=== PATIENT | male | born 1975 | race Caucasian/White ===

== ENCOUNTER → 2016-08-13 | Outpatient (CLI) | payer OTHER ==
[~2016-08-13] MED LIST: CITA20TA4 PO; INSDGI SC; KETO10TA PO; LISI-461 PO; LPT/40 PO; NVLGI SC; OXYC-57 PO; PANT1TAB48 PO; RANI300T2 PO; SIMV20TA2 PO; SULF-183 PO; TERB250T51 PO
[2016-08-13 16:55] LABS: BASO ABS # 0.07 K/uL (0-0.2); COMPLETE YES; EOS % 3.9 %; HEMATOCRIT 45.3 % (42-52); IG% 0.1 %; LYMPH % 19.2 %; LYMPH ABS # 1.39 K/uL (1.2-3.4); MEAN CELL VOLUME 85.3 fL (80-100); MEAN CORPUSCULAR HEMOGLOBIN 29.4 pg (25-34); MEAN CORPUSCULAR HGB CONC 34.4 g/dl (32-36); MEAN PLATELET VOLUME 10.9 fL (7.4-10.4); MONO % 6.1 %; NEUT % 69.7 %; PLATELET COUNT 251 K/uL (130-400); RED BLOOD COUNT 5.31 M/uL (4.7-6.1); WHITE BLOOD COUNT 7.24 K/uL (4.8-10.8)
[2016-08-13 17:01] LABS: URINE APPEARANCE CLEAR (CLEAR); URINE BILIRUBIN NEG (NEG); URINE COLOR YELLOW; URINE EPITHELIAL CELL AUTO 0-5 /lpf (0-5); URINE NITRITE NEG (NEG); URINE PH 8.5 (4.5-7.5); URINE SPECIFIC GRAVITY 1.005 (1.000-1.030); UROBILINOGEN NEG (NEG); ZZUR CULT IF INDIC CLEAN CATCH NO
[2016-08-13 17:12] LABS: ALT/SGPT 56 U/L (12-78); BLOOD UREA NITROGEN 20 mg/dl (7-18); BUN/CREATININE RATIO 21.2 (10-20); CALCIUM 9.5 mg/dl (8.5-10.1); CARBON DIOXIDE 30 mmol/L (21-32); CHLORIDE 103 mmol/L (98-107); CHOLESTEROL 155 mg/dl (0-200); CREATININE 0.95 mg/dl (0.60-1.40); GLUCOSE 83 mg/dl (70-99); POTASSIUM 3.9 mmol/L (3.5-5.1); SODIUM 140 mmol/L (136-145); TRIGLYCERIDES 50 mg/dl (0-150); VERY LOW DENSITY LIPOPROT CALC 10 mg/dl
[2016-08-13 17:15] LABS: MANUAL MICROSCOPIC REQUIRED? NO; REVIEW REQ? NO
[2016-08-13 17:15] LABS: ALB/GLOB RATIO 1.3 (0.9-2); ALKALINE PHOSPHATASE 77 U/L (45-117); AST/SGOT 25 U/L (15-37); HDL CHOLESTEROL 51 mg/dl; LDL CHOLESTEROL CALCULATED 94 mg/dl
[2016-08-13 17:34] LABS: RATIO 23.6 mcg/mg (0-30.0)
[2016-08-14 06:42] LABS: ESTIMATED AVERAGE GLUCOSE 189 mg/dl; HA1C FLAG Normal (Normal)
== END | disposition home or self-care (01) ==
LOC: C.LABBFT 11:37
PROVIDERS: ATTEND Internal Medicine
DX: E11.9 Type 2 diabetes mellitus without complications (principal); E78.5 Hyperlipidemia, unspecified

== ENCOUNTER → 2016-09-12 | Outpatient (CLI) | payer OTHER ==
--- NOTE | 2016-09-12 14:32 | DIAGNOSTIC IMAGING REPORT ---
OR[facility] RADIOGRAPHS 3 VIEWS HISTORY: pre-MRI screening. COMPARISON: None. FINDINGS: There are no radiopaque foreign bodies identified within the orbits. IMPRESSION: No radiopaque foreign bodies identified within the orbits. Electronically signed by: Rajinder Mckeon M.D. 09/12/2016 2:30 PM Dictated Date/Time: 09/12/2016 2:30 PM
--- NOTE | 2016-09-12 15:28 | DIAGNOSTIC IMAGING REPORT ---
MRI OF THE LEFT SHOULDER NO CONTRAST CLINICAL HISTORY: LEFT SHOULDER PAIN, R/O TEAR COMPARISON STUDY: No previous studies for comparison. FINDINGS: There is no pathologic marrow edema. There is no evidence of pathologic joint effusion. There is no evidence of rotator cuff tear. No labral abnormalities are visualized. The bicipital tendon appears normal. Mild degenerative changes are suspected. IMPRESSION: No evidence of rotator cuff tear. No evidence of occult fracture. Electronically signed by: Fran Martins M.D. 09/12/2016 3:26 PM Dictated Date/Time: 09/12/2016 3:23 PM
== END | disposition home or self-care (01) ==
LOC: C.RADBC 14:09
PROVIDERS: ATTEND Orthopaedic Surgery
DX: M25.512 Pain in left shoulder (principal)

== ENCOUNTER → 2016-09-15 | Outpatient (CLI) | payer OTHER ==
[2016-09-15 14:51] LABS: BASO ABS # 0.07 K/uL (0-0.2); COMPLETE YES; EOS % 2.2 %; HEMATOCRIT 44.6 % (42-52); IG% 0.1 %; LYMPH % 17.9 %; LYMPH ABS # 1.29 K/uL (1.2-3.4); MEAN CELL VOLUME 84.2 fL (80-100); MEAN CORPUSCULAR HEMOGLOBIN 29.4 pg (25-34); MEAN PLATELET VOLUME 10.6 fL (7.4-10.4); MONO % 5.1 %; NEUT % 73.7 %; PLATELET COUNT 234 K/uL (130-400); WHITE BLOOD COUNT 7.22 K/uL (4.8-10.8)
[2016-09-15 15:22] LABS: BLOOD UREA NITROGEN 15 mg/dl (7-18); BUN/CREATININE RATIO 15.9 (10-20); CALCIUM 9.4 mg/dl (8.5-10.1); CARBON DIOXIDE 32 mmol/L (21-32); CHLORIDE 99 mmol/L (98-107); CREATININE 0.93 mg/dl (0.60-1.40); GLUCOSE 194 mg/dl (70-99); POTASSIUM 4.4 mmol/L (3.5-5.1); SODIUM 138 mmol/L (136-145)
== END | disposition home or self-care (01) ==
LOC: C.LABBC 11:04
PROVIDERS: ATTEND Orthopaedic Surgery
DX: Z01.818 Encounter for other preprocedural examination (principal); M25.512 Pain in left shoulder

== ENCOUNTER → 2016-09-25 | Day surgery (SDC) | payer OTHER ==
[2016-09-22 12:03] VITALS: Ht 167.6 cm; Wt 77.3 kg
[~2016-09-25] VITALS: Ht 167.6 cm; Wt 77.3 kg
[~2016-09-25] MED LIST changes: +ATROPINE SULFATE 0.1 MG/ML 5ML SYR IV PRN; +BUPIVACAINE/EPINEPHRINE 0.25% 1:200,000 30 ML VIAL ONE; +CEFAZOLIN 2000 MG/60 ML D5W IV SCH; +EpHEDrine SULFATE INJ 50 MG/ML AMP IV PRN; +EpINEphrine INJ 1MG/ML AMP 1 MG/ML AMP ONE; +FENTANYL CITRATE INJ 50 MCG/1 ML 2 ML VIAL IV PRN; +FENTANYL CITRATE INJ 50 MCG/1 ML 2 ML VIAL ONE; +LACTATED RINGER'S 1000ML 1,000 ML IV SCH; +LIDOCAINE HCL 2% 2 ML VIAL (20MG/ML) ONE; +METHYLPREDNISOLONE ACETATE 80 MG/ML VIAL ONE; +MIDAZOLAM HCL 1 MG/ML 2ML VIAL ONE; +ONDANSETRON INJ 2 MG/ML 2 ML VIAL IV PRN; +ONDANSETRON INJ 2 MG/ML 2 ML VIAL ONE; +OXYCODONE/ACETAMINOPHEN 5-325 TAB PO PRN; +PROPOFOL IV EMULSION 10 MG/ML 20 ML VIAL IV ONE; +ROPIVACAINE 0.5% 5 MG/ML 30 ML VIAL ONE; -SIMV20TA2 PO; +SODIUM CHLORIDE 0.9% 1000ML 1,000 ML IV SCH; -SULF-183 PO; -TERB250T51 PO
--- NOTE | 2016-09-25 09:41 | History & Physical Bridge - SC ---
H&P Re-Evaluation Bridge Note: I have examined the patient, reviewed the History & Physical and in the interval since the performance of the History & Physical I have noted the following changes of clinical significance: No changes noted
--- NOTE | 2016-09-25 12:44 | OPERATIVE REPORT ---
DATE OF OPERATION: 09/25/2016 PREOPERATIVE DIAGNOSIS: Adhesive capsulitis of the left shoulder. POSTOPERATIVE DIAGNOSIS: Same. PROCEDURE: Left shoulder diagnostic arthroscopy with lysis of adhesions, extensive debridement and manipulation under anesthesia. SURGEON: Dr. Jeremy Schaeffer. PAINTER INTERIOR FINISH: Kris Muro PA-C, whose assistance was necessary for positioning the arm and help with instrumentation. ANESTHESIA: General with a left interscalene nerve block. COMPLICATIONS: None. CONDITION: Stable to PACU. INDICATIONS: Jeremy is a pleasant 41-year-old male who presented to my office with complaints of stiffness of his left shoulder. MRI and clinical examination were diagnostic for adhesive capsulitis of the left shoulder. After failing extensive conservative treatment, he elected to undergo a capsular release. OPERATION AND FINDINGS: On 09/25/2016 he arrived at [facility] for the above procedure. He was seen in the preoperative holding area and the operative extremity was identified and signed. He was preoperative antibiotic, taken back to the operating room, laid on the table in supine position and put under general anesthesia. He was then put into the beachchair position. Left shoulder was prepped and draped in sterile fashion. Time-out was done and the patient and operative extremity was properly identified. On preoperative physical examination, he only had about 45 degrees of abduction and 20 degrees of external rotation. The scope was placed in the posterior portal. Diagnostic arthroscopy showed no cartilage damage to the humeral head or the glenoid. The rotator cuff was intact. The biceps tendon was intact. There was significant scarring, redness and inflammation of the rotator interval, the middle and anterior inferior glenohumeral ligaments. An anterior portal was made. A shaver and ablator were used to do an extensive debridement of the rotator interval and a lysis of adhesions of the superior glenohumeral ligament. The middle and anterior inferior glenohumeral ligaments were also released with care taken not to damage the subscapularis or the axillary nerve. Significant time was spent debriding back the edges of the adhesions to ensure they do not tightened up again. Hemostasis was controlled with electrocautery. Arthroscopic instruments were removed from the shoulder and manipulation was then done under anesthesia. I was able to get full range of motion of his shoulder. The scope was placed back into the glenohumeral joint. Hemostasis was once again controlled and a spinal needle was placed. The scope was removed. Portal sites were closed with 3-0 nylon. The shoulder was then injected with 80 mg of Depo-Medrol and 5 mL of Marcaine. He was then placed in a soft dressing and regular arm sling. He was then extubated, transferred to a litter and taken to the postanesthesia care unit in stable condition. He tolerated the procedure well. I attest to the content of the Intraoperative Record and any orders documented therein. Any exceptio ns are noted below.
--- NOTE | 2016-09-25 12:45 | Discharge Instructions-SurgCtr ---
Discharge Instructions Date of Service Sep 25, 2016. Visit Reason for Visit: Left Shoulder Adhesive Capsulitis, Pain Discharge Discharge Diagnosis / Problem: SAME ABOVE Discharge Goals Goal(s): Decrease discomfort, Improve function Activity Recommendations Activity Limitations: as noted below Lifting Limitations: gradually increase as tolerated Exercise/Sports Limitations: gradually increase as tolerated Shower/Bathe: may shower/bathe in 3 days Anesthesia . Post Anesthesia Instructions: If you have had General Anesthesia or IV Sedation: * Do not drive today. * Resume driving when surgeon permits. * Do not make important decisions or sign legal documents today. * Call surgeon for: 1. Temperature elevations greater than 101 degrees F. 2. Uncontrollable pain. 3. Excessive bleeding. 4. Persistent nausea and vomiting. 5. Medication intolerance (nausea, vomiting or rash). * For nausea and vomiting use only clear liquids such as: tea, soda, bouillon until nausea subsides, then gradually increase diet as tolerated. * If you have any concerns or questions, call your surgeon's office. If physician is unavailable and it is an emergency, call 911 or go to the nearest emergency room. . Instructions / Follow-Up Instructions / Follow-Up MEDICATIONS: * Resume previous medications unless instructed otherwise by your surgeon. * Always take pain medication on a full stomach or with food to avoid upset stomach. * Do not drink alcohol or drive while taking narcotics. * Ibuprofen or Tylenol may be taken if narcotic not needed. SPECIAL CARE INSTRUCTIONS: __ None _X_ Keep extremity elevated and iced x 48 hours; apply ice 20-30 minutes 8-10 times/day. May remove at night. _X_ Sling (MAY REMOVE AFTER 24 HOURS. WEAR FOR COMFORT ONLY) __24 hrs/day __ Remove at night __ Shoulder Immobilizer __ 24 hrs/day __ Remove at night _X_ Dressing __ Maintain until seen in office, may shower with plastic over site _X_ Remove dressings in 24-48 hours and then may shower _X_ Cover incisions with band-aids after showering __ Do not remove steri-strips Call physician if chills or temperature rises above 102 degrees or pain unrelieved by prescribed pain medications at . . Diet Recommendations Home Diet: no limitations Fluid Restriction: None Procedures Procedures Performed: Left Shoulder Arthroscopic Capsular Release Pending Studies Studies pending at discharge: no Work Instructions Return To Work: after follow-up (OR WHEN PAIN IS TOLERABLE. YOU MAY RETURN WHEN YOU FEEL ABLE ) Lifting Limitations: none Medical Emergencies . Who to Call and When: Medical Emergencies: If at any time you feel your situation is an emergency, please call 911 immediately. . Non-Emergent Contact Non-Emergency issues call your: Primary Care Provider Call Non-Emergent contact if: you have a fever, temperature is above 101.5 . . "Provider Documentation" section prepared by Vadim Muro.
[2016-09-25 13:14] VITALS: TEMP 36.4
[2016-09-25 13:40] VITALS: BP 108/72; PULSE 73; O2SAT 97
--- NOTE | 2016-09-25 13:43 | Anesthesia Progress Nt - [facility] ---
Anesthesia Post Op Note Date & Time Sep 25, 2016 at 13:44 Vital Signs Pain Intensity: 0 Vital Signs Past 12 Hours Date Time Temp Pulse Resp B/P Pulse Ox O2 Delivery O2 Flow Rate FiO2 09/25/16 13:40 73 16 108/72 97 Room Air 09/25/16 13:14 36.4 69 18 116/77 95 Room Air 09/25/16 13:10 123/78 09/25/16 13:08 70 7 94 09/25/16 13:08 71 7 09/25/16 13:07 76 11 09/25/16 13:07 77 11 96 09/25/16 13:05 124/62 09/25/16 13:05 36.7 96 Room Air 09/25/16 13:02 75 17 09/25/16 13:02 74 17 95 09/25/16 13:01 73 11 96 09/25/16 13:01 73 11 09/25/16 13:00 120/79 09/25/16 12:56 73 12 09/25/16 12:56 73 12 97 09/25/16 12:55 117/82 09/25/16 12:51 74 10 100 09/25/16 12:51 74 10 09/25/16 12:50 124/77 09/25/16 12:46 72 19 09/25/16 12:46 71 19 100 09/25/16 12:45 120/73 09/25/16 12:41 80 22 130/87 09/25/16 12:41 36.3 79 16 130/87 99 Room Air 09/25/16 12:41 22 09/25/16 11:55 112/77 09/25/16 11:51 74 13 99 09/25/16 11:51 72 09/25/16 11:50 125/68 09/25/16 11:47 74 13 98 09/25/16 11:47 73 09/25/16 11:46 74 13 98 09/25/16 11:46 75 09/25/16 11:45 113/70 09/25/16 11:41 73 13 99 09/25/16 11:41 71 09/25/16 11:40 118/64 09/25/16 11:36 73 09/25/16 11:36 75 13 98 09/25/16 11:35 116/76 09/25/16 11:31 75 14 98 09/25/16 11:31 77 09/25/16 11:30 119/62 09/25/16 11:27 76 09/25/16 11:27 76 22 99 09/25/16 11:26 75 09/25/16 11:26 75 18 97 09/25/16 11:25 134/68 09/25/16 11:21 81 09/25/16 11:21 86 10 97 09/25/16 11:20 121/78 09/25/16 11:16 74 09/25/16 11:16 74 28 99 09/25/16 11:15 130/86 09/25/16 11:13 78 0 96 09/25/16 11:13 78 09/25/16 11:08 0 09/25/16 11:03 0 09/25/16 09:36 36.9 76 20 131/76 95 Room Air Notes Mental Status: alert / awake / arousable, participated in evaluation Pt Amnestic to Procedure: Yes Nausea / Vomiting: adequately controlled Pain: adequately controlled Airway Patency, RR, SpO2: stable & adequate BP & HR: stable & adequate Hydration State: stable & adequate Anesthetic Complications: no major complications apparent
--- NOTE | 2016-09-25 13:58 | [facility] Post Operative Brief Note ---
Immediate Operative Summary Operative Date Sep 25, 2016. Pre-Operative Diagnosis Left Shoulder Adhesive Capsulitis Post-Operative Diagnosis Same Procedure(s) Performed Left Shoulder Arthroscopic Capsular Release Surgeon Dr. Schaeffer Supervisor Personnel Clerks Surgeon(s) Chris Muro PA-C Estimated Blood Loss 2ml Findings as above Specimens None Complication(s) None Disposition Recovery Room / PACU
== END | disposition home or self-care (01) ==
LOC: X.SURG 09:22
PROVIDERS: ATTEND Orthopaedic Surgery
DX: M75.02 Adhesive capsulitis of left shoulder (principal); E11.9 Type 2 diabetes mellitus without complications; F17.210 Nicotine dependence, cigarettes, uncomplicated

== ENCOUNTER → 2017-08-25 | Outpatient (CLI) | payer OTHER ==
[~2017-08-25] MED LIST changes: -ATROPINE SULFATE 0.1 MG/ML 5ML SYR IV PRN; -BUPIVACAINE/EPINEPHRINE 0.25% 1:200,000 30 ML VIAL ONE; -CEFAZOLIN 2000 MG/60 ML D5W IV SCH; -EpHEDrine SULFATE INJ 50 MG/ML AMP IV PRN; -EpINEphrine INJ 1MG/ML AMP 1 MG/ML AMP ONE; -FENTANYL CITRATE INJ 50 MCG/1 ML 2 ML VIAL IV PRN; -FENTANYL CITRATE INJ 50 MCG/1 ML 2 ML VIAL ONE; -KETO10TA PO; -LACTATED RINGER'S 1000ML 1,000 ML IV SCH; -LIDOCAINE HCL 2% 2 ML VIAL (20MG/ML) ONE; -METHYLPREDNISOLONE ACETATE 80 MG/ML VIAL ONE; -MIDAZOLAM HCL 1 MG/ML 2ML VIAL ONE; -ONDANSETRON INJ 2 MG/ML 2 ML VIAL IV PRN; -ONDANSETRON INJ 2 MG/ML 2 ML VIAL ONE; -OXYC-57 PO; -OXYCODONE/ACETAMINOPHEN 5-325 TAB PO PRN; +PANT1TAB3 PO; -PANT1TAB48 PO; -PROPOFOL IV EMULSION 10 MG/ML 20 ML VIAL IV ONE; -ROPIVACAINE 0.5% 5 MG/ML 30 ML VIAL ONE; -SODIUM CHLORIDE 0.9% 1000ML 1,000 ML IV SCH
[2017-08-25 17:59] LABS: BASO % 1.1 %; BASO ABS # 0.07 K/uL (0-0.2); EOS % 4.1 %; EOS ABS # 0.27 K/uL (0-0.5); HEMATOCRIT 46.4 % (42-52); HEMOGLOBIN 15.9 g/dL (14.0-18.0); IG# 0.02 K/uL (0.00-0.02); LYMPH % 25.7 %; LYMPH ABS # 1.67 K/uL (1.2-3.4); MEAN CELL VOLUME 85.6 fL (80-100); MEAN CORPUSCULAR HEMOGLOBIN 29.3 pg (25-34); MEAN CORPUSCULAR HGB CONC 34.3 g/dl (32-36); MEAN PLATELET VOLUME 10.7 fL (7.4-10.4); MONO % 5.5 %; MONO ABS # 0.36 K/uL (0.11-0.59); NEUT % 63.3 %; NEUT ABS # 4.12 K/uL (1.4-6.5); PLATELET COUNT 246 K/uL (130-400); RED CELL DISTRIBUTION WIDTH CV 12.8 % (11.5-14.5); WHITE BLOOD COUNT 6.51 K/uL (4.8-10.8)
[2017-08-25 18:12] LABS: CREATININE RANDOM URINE 82.4 mg/dl
[2017-08-25 18:30] LABS: ALBUMIN 4.5 gm/dl (3.4-5.0); ALT/SGPT 77 U/L (12-78); BLOOD UREA NITROGEN 14 mg/dl (7-18); CALCIUM 9.4 mg/dl (8.5-10.1); CARBON DIOXIDE 31 mmol/L (21-32); CREATININE 1.01 mg/dl (0.60-1.40); GLUCOSE 199 mg/dl (70-99); SODIUM 134 mmol/L (136-145)
[2017-08-25 18:38] LABS: ALKALINE PHOSPHATASE 98 U/L (45-117); AST/SGOT 25 U/L (15-37); CHOLESTEROL 109 mg/dl (0-200); LDL CHOLESTEROL CALCULATED 55 mg/dl; TOTAL PROTEIN 8.1 gm/dl (6.4-8.2)
[2017-08-26 06:46] LABS: HEMOGLOBIN A1C 8.4 % (4.5-5.6)
== END | disposition home or self-care (01) ==
LOC: C.LABBFT 12:14
PROVIDERS: ATTEND Physician Assistant Medical
DX: E78.5 Hyperlipidemia, unspecified (principal)

== ENCOUNTER → 2017-09-03 | Outpatient (CLI) | payer OTHER ==
[2017-09-03 12:41] LABS: BLOOD UREA NITROGEN 21 mg/dl (7-18); CALCIUM 9.3 mg/dl (8.5-10.1); CARBON DIOXIDE 30 mmol/L (21-32); CREATININE 0.99 mg/dl (0.60-1.40); GLUCOSE 94 mg/dl (70-99); POTASSIUM 4.6 mmol/L (3.5-5.1); SODIUM 137 mmol/L (136-145)
== END | disposition home or self-care (01) ==
LOC: C.LABBFT 08:41
PROVIDERS: ATTEND Physician Assistant Medical
DX: E87.1 Hypo-osmolality and hyponatremia (principal)

== ENCOUNTER → 2017-11-18 | Outpatient (CLI) | payer OTHER | END | disposition home or self-care (01) | LOC: C.LABBFT 10:48 | PROVIDERS: ATTEND Internal Medicine Endocrinology, Diabetes & Metabolism | DX: E10.65 Type 1 diabetes mellitus with hyperglycemia (principal) ==